=== PATIENT | female | born 1970 | race Caucasian/White ===

== ENCOUNTER 2016-07-28 08:42 | Emergency (ER) | payer OTHER ==
[2016-07-28] MEDS ORDERED: DILTIAZEM 5 MG/ML 5 ML VIAL IVP STA (08:52)
[2016-07-28] MEDS ORDERED: ADENOSINE 3 MG/ML 2 ML VIAL IVP STA ×2 (08:55→08:58)
[2016-07-28] MEDS ORDERED: SODIUM CHLORIDE 0.9% 1,000 ML IV STA (08:55)
[2016-07-28] MEDS ORDERED: LORazepam 2 MG/ML SYRINGE IV STA (08:55)
--- NOTE | 2016-07-28 09:10 | ED ---
General Adult HPI - General Chief complaint: Arrhythmia/Palpitations Stated complaint: Cardiac Issues Time Seen by Provider: 07/28/16 08:43 Source: patient, EMS, RN notes reviewed Mode of arrival: EMS Limitations: altered mental status - History of Present Illness Initial comments: Patient is a pleasant [age]-year-old female presenting to the emergency department complaining of palpitations. Onset was sometime around 7 AM. Symptoms improved and worsen prior to arrival. Patient also has some associated shortness of breath. Patient admits to feeling anxious. No history of similar symptoms previously. Patient denies chest discomfort. - Related Data Allergies Allergy/AdvReac Type Severity Reaction Status Date / Time No Known Drug Allergies Allergy Unknown Unknown Verified 07/28/16 09:03 Review of Systems ROS Statement: Those systems with pertinent positive or pertinent negative responses have been documented in the HPI. ROS Other: All systems not noted in ROS Statement are negative. Constitutional: Denies: fever Eyes: Denies: eye pain ENT: Denies: ear pain Respiratory: Reports: dyspnea. Denies: cough Cardiovascular: Reports: palpitations. Denies: chest pain Endocrine: Denies: fatigue Gastrointestinal: Denies: abdominal pain Genitourinary: Denies: dysuria Musculoskeletal: Denies: back pain Skin: Denies: rash Neurological: Denies: weakness Past Medical History Past Medical History: Osteoarthritis (OA) Additional Past Medical History / Comment(s): shoulder pain History of Any Multi-Drug Resistant Organisms: None Reported Past Surgical History: Hysterectomy Additional Past Surgical History / Comment(s): bunionectomy, ankle reconstruction Past Psychological History: Depression Smoking Status: Never smoker Past Alcohol Use History: None Reported Past Drug Use History: None Reported General Exam Limitations: altered mental status General appearance: alert, anxious Head exam: Present: atraumatic Eye exam: Present: normal appearance ENT exam: Present: normal oropharynx Neck exam: Present: normal inspection Respiratory exam: Present: normal lung sounds bilaterally Cardiovascular Exam: Present: tachycardia GI/Abdominal exam: Present: soft. Absent: tenderness Extremities exam: Present: normal inspection. Absent: pedal edema, calf tenderness Neurological exam: Present: alert Psychiatric exam: Present: anxious Skin exam: Absent: rash Course Vital Signs 07/28/16 07/28/16 08:44 10:01 Temperature 98.2 F Pulse Rate 92 102 H Respiratory 30 H 18 Rate Blood Pressure 136/72 112/68 O2 Sat by Pulse 97 95 Oximetry - Reevaluation(s) Reevaluation #1: 07/28/16 09:09 EKG #2 shows normal sinus rhythm at 95 with sinus arrhythmia. [place] 156. QRS 68. QT 358. QTC 449. Normal axis. Normal QRS. Normal ST-T. 07/28/16 09:09 EMS provided 6 of adenosine without conversion. This was tried twice with 12 mg each without conversion. Rhythm did slow down without evidence of atrial fibrillation. Patient did convert following 10 mg of Cardizem IV push. EKG Findings - EKG Comments: EKG Findings:: EKG shows SVT with a rate of 175. QRS 68. QT to 72. QTC 464. Normal axis. Normal QRS. No acute ST change. Medical Decision Making - Medical Decision Making Patient reevaluated and resting comfortably in bed. Patient remained symptom- free. Patient was taking a diet pill and advised to discontinue this. Patient also occasionally takes energy drinks and also advised to discontinue this as well. Patient is also advised of mild hypoglycemia and need for further evaluation regarding this. - Lab Data Result diagrams: 07/28/16 09:05 07/28/16 09:05 Lab Results 07/28/16 07/28/16 07/28/16 Range/Units 09:05 09:05 09:05 WBC 5.0 (3.8-10.6) k/uL RBC 4.60 (3.80-5.40) m/uL Hgb 13.8 (11.4-16.0) gm/dL Hct 41.8 (34.0-46.0) % MCV 90.9 (80.0-100.0) fL MCH 30.1 (25.0-35.0) pg MCHC 33.1 (31.0-37.0) g/dL RDW 13.3 (11.5-15.5) % Plt Count 227 (150-450) k/uL Neutrophils % 63 % Lymphocytes % 25 % Monocytes % 6 % Eosinophils % 3 % Basophils % 1 % Neutrophils # 3.1 (1.3-7.7) k/uL Lymphocytes # 1.2 (1.0-4.8) k/uL Monocytes # 0.3 (0-1.0) k/uL Eosinophils # 0.1 (0-0.7) k/uL Basophils # 0.1 (0-0.2) k/uL PT (9.0-12.0) sec INR (<1.1) APTT (22.0-30.0) sec Sodium 142 (137-145) mmol/L Potassium 4.0 (3.5-5.1) mmol/L Chloride 111 H (98-107) mmol/L Carbon Dioxide 17 L (22-30) mmol/L Anion Gap 14 mmol/L BUN 19 H (7-17) mg/dL Creatinine 1.21 H (0.52-1.04) mg/dL Est GFR (MDRD) Af Amer 58 (>60 ml/min/1.73 sqM) Est GFR (MDRD) Non-Af 47 (>60 ml/min/1.73 sqM) Glucose 70 L (74-99) mg/dL POC Glucose (mg/dL) (75-99) mg/dL POC Glu Bumper Straightener ID Calcium 8.5 (8.4-10.2) mg/dL Magnesium 2.1 (1.6-2.3) mg/dL Total Bilirubin 0.6 (0.2-1.3) mg/dL AST 43 H (14-36) U/L ALT 44 (9-52) U/L Alkaline Phosphatase 92 (38-126) U/L Total Creatine Kinase 152 H (30-135) U/L CK-MB (CK-2) 1.3 (0.0-2.4) ng/mL CK-MB (CK-2) Rel Index 0.9 Troponin I <0.012 (0.000-0.034) ng/mL Total Protein 7.2 (6.3-8.2) g/dL Albumin 3.8 (3.5-5.0) g/dL TSH 0.933 (0.465-4.680) mIU/L 07/28/16 07/28/16 Range/Units 09:46 10:29 WBC (3.8-10.6) k/uL RBC (3.80-5.40) m/uL Hgb (11.4-16.0) gm/dL Hct (34.0-46.0) % MCV (80.0-100.0) fL MCH (25.0-35.0) pg MCHC (31.0-37.0) g/dL RDW (11.5-15.5) % Plt Count (150-450) k/uL Neutrophils % % Lymphocytes % % Monocytes % % Eosinophils % % Basophils % % Neutrophils # (1.3-7.7) k/uL Lymphocytes # (1.0-4.8) k/uL Monocytes # (0-1.0) k/uL Eosinophils # (0-0.7) k/uL Basophils # (0-0.2) k/uL PT 9.6 (9.0-12.0) sec INR 0.9 (<1.1) APTT 21.7 L (22.0-30.0) sec Sodium (137-145) mmol/L Potassium (3.5-5.1) mmol/L Chloride (98-107) mmol/L Carbon Dioxide (22-30) mmol/L Anion Gap mmol/L BUN (7-17) mg/dL Creatinine (0.52-1.04) mg/dL Est GFR (MDRD) Af Amer (>60 ml/min/1.73 sqM) Est GFR (MDRD) Non-Af (>60 ml/min/1.73 sqM) Glucose (74-99) mg/dL POC Glucose (mg/dL) 72 L (75-99) mg/dL POC Glu Bumper Straightener ID Denise Reyes Calcium (8.4-10.2) mg/dL Magnesium (1.6-2.3) mg/dL Total Bilirubin (0.2-1.3) mg/dL AST (14-36) U/L ALT (9-52) U/L Alkaline Phosphatase (38-126) U/L Total Creatine Kinase (30-135) U/L CK-MB (CK-2) (0.0-2.4) ng/mL CK-MB (CK-2) Rel Index Troponin I (0.000-0.034) ng/mL Total Protein (6.3-8.2) g/dL Albumin (3.5-5.0) g/dL TSH (0.465-4.680) mIU/L - Radiology Data Radiology results: image reviewed (Chest x-ray shows no acute cardiopulmonary process) Critical Care Time Critical Care Time: Yes Total Critical Care Time: 33 Disposition Clinical Impression: Supraventricular tachycardia Disposition: HOME SELF-CARE Condition: Stable Instructions: Supraventricular Tachycardia (ED) Additional Instructions: Please follow-up with cardiology and primary care physician this week. Return for uncontrolled heart rate, difficulty breathing, chest pain, worsening symptoms or other concerns. Discontinue energy or diet pills. Discontinue energy drinks. Referrals: Joseph Valdivia DO [Primary Care Provider] - 1-2 days Mai Evans MD [STAFF PHYSICIAN] - 1-2 days Decision Time: 11:23
[2016-07-28] MEDS ORDERED: DILTIAZEM 125 MG in SODIUM CHLORIDE 0.9% 100 ML IV STA (09:14)
[2016-07-28 09:33] LABS: Calcium 8.5 mg/dL (8.4-10.2); Magnesium 2.1 mg/dL (1.6-2.3); Total Bilirubin 0.6 mg/dL (0.2-1.3); Total Protein 7.2 g/dL (6.3-8.2)
[2016-07-28 09:42] LABS: Creatine Kinase 152 U/L (30-135)
--- NOTE | 2016-07-28 09:44 | XR ---
EXAMINATION TYPE: XR chest 1V portable DATE OF EXAM: 07/28/2016 9:31 AM Comparison: None Clinical History: 46-year-old female with dysrhythmia Findings: The cardiomediastinal silhouette, aorta, and pulmonary vasculature are within normal limits. Lung vo lumes are slightly low crowding the vascular markings. Some strandy atelectasis in the lower lungs. N o consolidation or pleural effusion. Impression: Some hypoventilatory changes. Otherwise, no acute cardiopulmonary process.
[2016-07-28 09:53] LABS: Basophils # (A) 0.1 k/uL (0-0.2); Basophils % (A) 1 %; CH 30.3; CHCM 33.5; Creatine Kinase MB 1.3 ng/mL (0.0-2.4); Eosinophils # (A) 0.1 k/uL (0-0.7); Eosinophils % (A) 3 %; HCT 41.8 % (34.0-46.0); HDW 3.07; HGB 13.8 gm/dL (11.4-16.0); Luc # (Auto) 0.16; Luc % (Auto) 3; Lymphocytes # (A) 1.2 k/uL (1.0-4.8); Lymphocytes % (A) 25 %; MCH 30.1 pg (25.0-35.0); MCHC 33.1 g/dL (31.0-37.0); MCV 90.9 fL (80.0-100.0); Monocytes # (A) 0.3 k/uL (0-1.0); Monocytes % (A) 6 %; Neutrophils # (A) 3.1 k/uL (1.3-7.7); Neutrophils % (A) 63 %; RDW 13.3 % (11.5-15.5); Troponin I <0.012 ng/mL (0.000-0.034); WBC (Perox) 4.87
[2016-07-28 10:02] LABS: INR 0.9 (<1.1); Prothrombin Time 9.6 sec (9.0-12.0)
[2016-07-28] MEDS ORDERED: SODIUM CHLORIDE 0.9% 500 ML IV STA (10:15)
[2016-07-28 10:28] LABS: Partial Thromboplastin Time 21.7 sec (22.0-30.0)
[2016-07-28 10:34] LABS: Glucose,Whole Blood 72 mg/dL (75-99)
[2016-07-28 11:39] VITALS: BP 109/61; PULSE 81; RESP 16; TEMP 98
== END 2016-07-28 11:39 | disposition home or self-care (01) ==
LOC: EC 08:42
DX: I47.1 Supraventricular tachycardia (principal); E16.2 Hypoglycemia, unspecified
CPT/HCPCS: 36415; 93005; 80053; 82550; 82553; 83735; 84443; 84484; 85025; 85610; 85730; 71010; 99291; 96374; 96375 ×2; 96361 ×2; J2060; J0153

== ENCOUNTER → 2018-06-14 | Outpatient (CLI) | payer OTHER ==
--- NOTE | 2018-06-16 09:47 | MM ---
Reason for exam: screening (asymptomatic). History: Patient is postmenopausal and has history of other cancer at age 9. Family history of breast cancer in mother at age 35 and breast cancer in sister at age 40. Took estrogen for 3 years 11 months beginning at age 44. Physical Findings: A clinical breast exam by your physician is recommended on an annual basis and results should be correlated with mammographic findings. MG 3D Screening Mammo W/Cad Bilateral CC and MLO view(s) were taken. No prior studies available for comparison. There are scattered fibroglandular densities. There is no discrete abnormality. ASSESSMENT: Negative, BI-RAD 1 RECOMMENDATION: Routine screening mammogram of both breasts in 1 year.
== END ==
LOC: RADMAMWWP 10:00
DX: Z12.31 Encounter for screening mammogram for malignant neoplasm of breast (principal)
CPT/HCPCS: 77063; 77067

== ENCOUNTER → 2019-11-02 | Outpatient (CLI) | payer OTHER ==
--- NOTE | 2019-11-03 13:19 | MM ---
Reason for exam: screening (asymptomatic). Last mammogram was performed 1 year and 5 months ago. History: Patient is postmenopausal and has history of other cancer at age 9. Family history of breast cancer in mother at age 35 and breast cancer in sister at age 40. Took estrogen for 3 years 11 months beginning at age 44. Physical Findings: A clinical breast exam by your physician is recommended on an annual basis and results should be correlated with mammographic findings. MG Screening Mammo w CAD Bilateral CC and MLO view(s) were taken. Prior study comparison: June 14, 2018, bilateral MG 3d screening mammo w/cad. There are scattered fibroglandular densities. No significant changes when compared with prior studies. ASSESSMENT: Benign, BI-RAD 2 RECOMMENDATION: Routine screening mammogram of both breasts in 1 year.
== END | disposition home or self-care (01) ==
LOC: RADMAMWWP 08:00
PROVIDERS: ATTEND Nurse Practitioner Acute Care
DX: Z12.31 Encounter for screening mammogram for malignant neoplasm of breast (principal)
CPT/HCPCS: 77067

== ENCOUNTER → 2021-01-04 | Outpatient (CLI) | payer OTHER ==
--- NOTE | 2021-01-08 09:02 | MM ---
Reason for exam: screening (asymptomatic). Last mammogram was performed 1 year and 2 months ago. History: Patient is postmenopausal and has history of other cancer at age 9. Family history of breast cancer in mother at age 35 and breast cancer in sister at age 40. Took estrogen for 3 years 11 months beginning at age 44. Physical Findings: A clinical breast exam by your physician is recommended on an annual basis and results should be correlated with mammographic findings. MG 3D Screening Mammo W/Cad Bilateral CC and MLO view(s) were taken. Prior study comparison: November 02, 2019, bilateral MG screening mammo w CAD. June 14, 2018, bilateral MG 3d screening mammo w/cad. There are scattered fibroglandular densities. No significant changes when compared with prior studies. ASSESSMENT: Negative, BI-RAD 1 RECOMMENDATION: Routine screening mammogram of both breasts in 1 year.
== END | disposition home or self-care (01) ==
LOC: RADMAMWWP 15:13
PROVIDERS: ATTEND Family Medicine
DX: Z12.31 Encounter for screening mammogram for malignant neoplasm of breast (principal); Z78.0 Asymptomatic menopausal state; Z85.9 Personal history of malignant neoplasm, unspecified; Z80.3 Family history of malignant neoplasm of breast; Z79.818 Long term (current) use of other agents affecting estrogen receptors and estrogen levels
CPT/HCPCS: 77063; 77067